=== PATIENT | female | born 1995 | race Caucasian/White ===

== ENCOUNTER 2024-09-08 00:23 | Emergency (ER) | payer MEDICAID ==
[~2024-09-08] VITALS: Ht 157.5 cm; Wt 59.0 kg
[2024-09-08 00:32] VITALS: BP 132/95; PULSE 113; RESP 18; TEMP 98.4; O2SAT 99
[2024-09-08] MEDS ORDERED: AMOX-494 MT (21:00)
[2024-09-08] MEDS ORDERED: NAPR-681 PO (21:00)
== END 2024-09-08 03:00 | disposition left against medical advice (07) ==
LOC: ER 00:23
DX: H60.92 Unspecified otitis externa, left ear (principal)
CPT/HCPCS: 99283

== ENCOUNTER 2024-09-08 17:36 | Emergency (ER) | payer MEDICAID ==
[~2024-09-08] VITALS: Ht 152.4 cm; Wt 54.0 kg
[2024-09-08 17:39] VITALS: O2SAT 100
[2024-09-08 17:42] VITALS: TEMP 98.8; O2SAT 98
[2024-09-08 20:33] VITALS: BP 107/59; PULSE 89; RESP 18
[2024-09-08] MEDS: HYDROCODONE/ACETAMINOPHEN 5/325MG TABLET PO STA (20:33)
[2024-09-08] MEDS ORDERED: NAPR-681 PO (21:00)
[2024-09-08] MEDS ORDERED: AMOX-494 MT (21:00)
== END 2024-09-08 21:10 | disposition home or self-care (01) ==
LOC: ER 17:36
DX: S02.2XXA Fracture of nasal bones, initial encounter for closed fracture (principal); S00.83XA Contusion of other part of head, initial encounter; G44.309 Post-traumatic headache, unspecified, not intractable; I10 Essential (primary) hypertension; X58.XXXA Exposure to other specified factors, initial encounter; Y93.89 Activity, other specified; Y92.89 Other specified places as the place of occurrence of the external cause; Y99.8 Other external cause status
CPT/HCPCS: 70486; 73130; 99284